=== PATIENT | female | born 1990 | race Caucasian/White ===

== ENCOUNTER 2016-09-11 11:55 | Emergency (ER) | payer BC ==
[2016-09-11] MEDS ORDERED: NS 0.9% 1000 ML* 1,000 ML IV ONE (16:02)
[2016-09-11 17:11] LABS: Urine Bilirubin Negative (Negative); Urine Glucose Negative (Negative); Urine Nitrite Negative (Negative)
[2016-09-11] MEDS ORDERED: Ondansetron INJ* 2 MG/ML VIAL IV ONE ×2 (17:35→19:48)
[2016-09-11] MEDS ORDERED: Metoclopramide IV* 5 MG/ML 2 ML VIAL IV ONE (18:36)
[2016-09-11] MEDS ORDERED: diPHENhydraMINE IV* 50 MG/ML 1 ml VIAL (BENADRYL) IV ONE (18:39)
[2016-09-11 19:02] LABS: Hematocrit 35 % (35-47); Hemoglobin 11.8 g/dl (12.0-16.0); Mean Corpuscular HGB Conc 34 g/dl (31-36); Mean Corpuscular Hemoglobin 30 pg (27-31); Mean Corpuscular Volume 89 fL (80-97); Mean Platelet Volume 8 um3 (7.4-10.4); Red Blood Count 3.92 10^6/ul (4.0-5.4); Red Cell Distribution Width 14 % (10.5-15); White Blood Count 13.9 10^3/ul (3.5-10.8)
[2016-09-11 19:18] LABS: Albumin 4.2 g/dL (3.2-5.2); BUN/Creatinine Ratio 17.9 (8-20); Calcium 9.4 mg/dL (8.6-10.3); EGFR African American 136.8 (>60); EGFR Non-African American 106.4 (>60); Globulin 2.9 g/dL (2-4); Magnesium 1.9 mg/dL (1.9-2.7); Potassium 3.5 mmol/L (3.5-5.0); Total Bilirubin 0.9 mg/dL (0.2-1.0); Total Protein 7.1 g/dL (6.4-8.9)
[2016-09-11 21:07] VITALS: BP 99/52
--- NOTE | 2016-09-13 00:22 | ED ---
Dereje Cortes Matthew, scribed for Soy Pham MD on 09/11/16 at 1732 . GI/ HPI - HPI Summary HPI Summary: A 14 week 25 y/o female presents to the ED with nausea and vomiting since two days ago. She has not been able to keep liquids or solids down. She has been throwing up every 30-45 minutes. Associated symptoms include dizziness - since this morning that's worse with movement and described as lightheadedness , headache - since this morning and rated 6/10 in severity, fatigue, and difficulty sleeping. The patient denies abdominal pain, hematemesis, fever, diaphoresis, weight change, diarrhea, and constipation. She had similar symptoms a months ago, and was prescribed anti nausea medication, which helped. At that time she was admitted for 2 days. Her last BM was yesterday and described as soft. Every women in her family has had constant nausea throughout their . 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 - History of Current Complaint Chief Complaint: EDNauseaVomitDiarrh Time Seen by Provider: 09/11/16 17:07 Stated Complaint: 14 WEEKS PREG , VOMITING Hx Obtained From: Patient Onset/Duration: Started Days Ago, Atraumatic, Still Present Timing: Constant Severity: Moderate Current Severity: Moderate Location of Pain: None Associated Signs and Symptoms: Positive: Dizziness, Lightheadedness, Other: - Difficulty sleeping; Fatigue; Headache. Negative: Constipation, Diarrhea, Diaphoresis, Fever, Change in Appetite, Abdominal Pain Aggravating Factor(s): Food Alleviating Factor(s): Nothing - Additional Pertinent History Primary Care Physician: [id number] - Allergy/Home Medications Allergies/Adverse Reactions: Allergies Allergy/AdvReac Type Severity Reaction Status Date / Time Amoxicillin Allergy Severe Hives Verified 10/31/14 13:44 Doxycycline Allergy Severe Hives Verified 10/31/14 13:44 Hydrocodone [From Vicodin] Allergy Severe Nausea And Verified 10/31/14 13:44 Vomiting Hydromorphone [From Dilaudid] Allergy Severe Hives Verified 10/31/14 13:44 Coconut Allergy Severe Anaphylatic Uncoded 10/31/14 13:44 Shock Nuts Allergy Severe Anaphylatic Uncoded 10/31/14 13:44 Shock PMH/Surg Hx/FS Hx/Imm Hx Endocrine/Hematology History: Denies: Hx Diabetes Cardiovascular History: Denies: Hx Congestive Heart Failure, Hx Hypertension Respiratory History: Reports: Hx Asthma GI History: Reports: Other GI Disorders - gall bladder removed- 2006 or 2007 History: Denies: Hx Renal Disease Musculoskeletal History: Reports: Other Musculoskeletal History - 2004: tendon lengthening surgery- bilateral l. extremity Neurological History: Reports: Hx Migraine - 2-3 times per week/ treats with excedrin or mtn dew Denies: Other Neuro Impairments/Disorders Psychiatric History: Reports: Hx Anxiety, Hx Depression, Hx Panic Disorder, Hx Community Mental Health Tx - Family and Children's Denies: Hx Eating Disorder, Hx of Violent Episodes Against Others - Surgical History Surgery Procedure, Year, and Place: 1999- tonsillectomy. 2003- tendon lenthening surgery, to bilateral lower extremities. 2006 or 2007- gallbladder removal - Immunization History Date of Tetanus Vaccine: Unknown Infectious Disease History: Yes Infectious Disease History: Denies: Traveled Outside the [place] in Last 30 Days - Family History Known Family History: Positive: Hypertension, Other - depression - mother Family History: FHx of [place] - Social History Alcohol Use: None Alcohol Amount: 1-2 drinks approximately twice a month Substance Use Type: Reports: None Smoking Status (MU): Never Smoked Tobacco Review of Systems Positive: Fatigue. Negative: Fever, Chills Eyes: Negative ENT: Negative Cardiovascular: Negative Respiratory: Negative Positive: Vomiting, Nausea. Negative: Abdominal Pain, Diarrhea Genitourinary: Negative Musculoskeletal: Negative Skin: Negative Neurological: Other - Dizziness; Lightheadedness Psychological: Normal All Other Systems Reviewed And Are Negative: Yes Physical Exam Triage Information Reviewed: Yes Vital Signs On Initial Exam: Initial Vitals Temp Pulse Resp BP Pulse Ox 98.5 F 79 18 108/67 100 09/11/16 12:31 09/11/16 12:31 09/11/16 12:31 09/11/16 12:09/11/16 12:31 Vital Signs Reviewed: Yes Appearance: Positive: Well-Appearing, No Pain Distress Skin: Positive: Warm, Dry, Pale Head/Face: Positive: Normal Head/Face Inspection Eyes: Positive: EOMI, AISHA ENT: Positive: Normal ENT inspection Neck: Positive: Supple, Nontender Respiratory/Lung Sounds: Positive: Clear to Auscultation, Breath Sounds Present Cardiovascular: Positive: RRR Abdomen Description: Positive: Nontender, Soft Bowel Sounds: Positive: Hypoactive Musculoskeletal: Positive: Normal, Strength/ROM Intact Neurological: Positive: Normal, Sensory/Motor Intact, Alert, Oriented to Person Place, Time Psychiatric: Positive: Normal, Affect/Mood Appropriate Diagnostics - Vital Signs Vital Signs Temp Pulse Resp BP Pulse Ox 09/11/16 15:45 98.6 F 82 101/58 100 09/11/16 14:30 98.7 F 80 20 110/63 100 09/11/16 13:37 98.5 F 73 17 107/60 99 09/11/16 12:31 98.5 F 79 18 108/67 100 - Laboratory Lab Results: Lab Results 09/11/16 Range/Units 12:43 Urine Color [place] Urine Appearance Turbid Urine pH 5.0 (5-9) Ur Specific [employer] [place] 1.019 (1.010-1.030) Urine Protein Negative (Negative) Urine Ketones Negative (Negative) Urine Blood Negative (Negative) Urine Nitrate Negative (Negative) Urine Bilirubin Negative (Negative) Urine Urobilinogen Negative (Negative) Ur Leukocyte Esterase Negative (Negative) Urine Glucose Negative (Negative) Urine Ascorbic Acid * H (Negative) Result Diagrams: 09/11/16 18:50 09/11/16 18:50 Lab Statement: Any lab studies that have been ordered have been reviewed, and results considered in the medical decision making process. GIGU Course/Dx - Course Assessment/Plan: A 14 week 25 y/o female presents to the ED with nausea and vomiting since two days ago. Labs were reviewed. In the ED course, the patient was given Reglan, iv fluids, Zofran, and Benadryl. After the medications, her nausea had improved. She will be discharged home and follow-up with [facility] - Diagnoses Provider Diagnoses: Vomiting, Dehydration Discharge - Discharge Plan Condition: Stable Disposition: HOME Patient Education Materials: Nausea and Vomiting in (ED) Referrals: [facility] [Provider Group] Additional Instructions: Please follow-up with your [facility]. The documentation as recorded by the Dereje burdick Matthew accurately reflects the service I personally performed and the decisions made by me, Soy Pham MD.
== END 2016-09-11 21:07 | disposition home or self-care (01) ==
LOC: ED 11:55
DX: O26.892 Other specified pregnancy related conditions, second trimester (principal); O21.9 Vomiting of pregnancy, unspecified; Z3A.14 14 weeks gestation of pregnancy; Z88.0 Allergy status to penicillin; Z88.5 Allergy status to narcotic agent; E86.0 Dehydration
CPT/HCPCS: 36415; 80053; 81003; 83735; 85025; 96360; 96374; 96375; 96376; 99283; J1200; J2405; J2765

== ENCOUNTER 2017-03-06 20:57 | Inpatient (IN) | payer BC ==
[2017-03-06] MEDS ORDERED: Albuterol HFA INHALER* 8 gm MDI INH PRN (21:28)
[2017-03-06] MEDS ORDERED: Ondansetron INJ* 2 MG/ML VIAL IV ONE (21:55)
[2017-03-06 22:04] LABS: Hematocrit 34 % (35-47); Hemoglobin 11.4 g/dl (12.0-16.0); Mean Corpuscular HGB Conc 33 g/dl (31-36); Mean Corpuscular Hemoglobin 29 pg (27-31); Mean Corpuscular Volume 88 fL (80-97); Mean Platelet Volume 10 um3 (7.4-10.4); Red Blood Count 3.88 10^6/ul (4.0-5.4); Red Cell Distribution Width 13 % (10.5-15); White Blood Count 20.5 10^3/ul (3.5-10.8)
[2017-03-06] MEDS ORDERED: Ondansetron INJ* 2 MG/ML VIAL ONE (22:10)
[2017-03-06 22:17] LABS: Albumin 3.2 g/dL (3.2-5.2); BUN/Creatinine Ratio 8.9 (8-20); Calcium 8.2 mg/dL (8.6-10.3); EGFR African American 112.3 (>60); EGFR Non-African American 87.3 (>60); Globulin 3.3 g/dL (2-4); Potassium 3.3 mmol/L (3.5-5.0); Total Bilirubin 0.8 mg/dL (0.2-1.0); Total Protein 6.5 g/dL (6.4-8.9); Uric Acid 5.6 mg/dL (2.3-6.6)
[2017-03-06] MEDS ORDERED: OBEPIDURAL* 250 ML ONE (23:28)
[2017-03-07] MEDS ORDERED: Famotidine TAB* 20 MG PO PRN (00:13)
[2017-03-07] MEDS ORDERED: Phenylephrine IV* 40 MCG/ML 10 ML SYRINGE IV PUSH PRN ×2 (00:13)
[2017-03-07] MEDS ORDERED: Sodium Citrate/Citric Acid* 15 ML UDC PO PRN (00:13)
[2017-03-07] MEDS ORDERED: OBEPIDURAL* 250 ML EPIDURAL SCH (01:00)
[2017-03-07] MEDS ORDERED: Oxytocin in LR* 20 UNITS/1,000 ML BAG IVPB ONE (06:44)
[2017-03-07] MEDS ORDERED: Oxytocin in LR* 20 UNITS/1,000 ML BAG IVPB SCH ×2 (07:00→17:00)
[2017-03-07] MEDS ORDERED: fentaNYL* 50 MCG/ML 2 ML VIAL (100 MCG VIAL) ONE (09:49)
[2017-03-07] MEDS ORDERED: Lidocaine 1% MPF wEPI 200,000* 30 ML SDV ONE (09:51)
[2017-03-07] MEDS ORDERED: Acetaminophen TAB* 325 MG ONE (14:56)
[2017-03-07] MEDS ORDERED: ceFOXitin 2 GM IVPREMIX* 2 GM/50 ML BAG ONE (14:56)
[2017-03-07] MEDS ORDERED: Acetaminophen SUPP* 325 MG SUPP PR ONE (14:58)
[2017-03-07] MEDS ORDERED: Acetaminophen TAB* 325 MG PO ONE (14:59)
[2017-03-07] MEDS ORDERED: ceFOXitin 2 GM IVPREMIX* 2 GM/50 ML BAG IVPB SCH (15:00)
[2017-03-07] MEDS ORDERED: Dibucaine 1% 28.35 GM TUBE PR PRN (16:55)
[2017-03-07] MEDS ORDERED: Witch Hazel PAD* JAR TOPICAL PRN (16:55)
[2017-03-07] MEDS ORDERED: Misoprostol TAB* 200 MCG PR ONE (16:55)
[2017-03-07] MEDS: Ibuprofen TAB* 600 MG PO PRN (17:30)
[2017-03-07] MEDS: Acetaminophen TAB* 325 MG PO PRN (20:22)
[2017-03-07] MEDS: Docusate CAP* 100 MG PO SCH (20:22)
[2017-03-08] MEDS: Ibuprofen TAB* 600 MG PO PRN ×4 (03:40→22:25)
[2017-03-08 07:04] LABS: Hematocrit 21 % (35-47); Hemoglobin 6.9 g/dl (12.0-16.0); Mean Corpuscular HGB Conc 33 g/dl (31-36); Mean Corpuscular Hemoglobin 29 pg (27-31); Mean Corpuscular Volume 89 fL (80-97); Mean Platelet Volume 10 um3 (7.4-10.4); Red Blood Count 2.38 10^6/ul (4.0-5.4); Red Cell Distribution Width 13 % (10.5-15); White Blood Count 21.8 10^3/ul (3.5-10.8)
[2017-03-08] MEDS: Acetaminophen TAB* 325 MG PO PRN ×3 (08:24→20:53)
[2017-03-08] MEDS: Docusate CAP* 100 MG PO SCH ×3 (08:25→20:53)
[2017-03-08] MEDS: Ferrous Gluconate TAB* 324 MG TAB PO SCH ×2 (20:53→20:54)
[2017-03-09] MEDS: Docusate CAP* 100 MG PO SCH ×3 (08:10→20:23)
[2017-03-09] MEDS: Acetaminophen TAB* 325 MG PO PRN (08:10)
[2017-03-09] MEDS: Ferrous Gluconate TAB* 324 MG TAB PO SCH ×2 (08:10→20:23)
[2017-03-09] MEDS: Ibuprofen TAB* 600 MG PO PRN ×3 (08:11→20:23)
[2017-03-09] MEDS: diPHENhydraMINE PO* 25 MG PO PRN (17:57)
[2017-03-09] MEDS: Hydrocortisone 1% CREAM* 30 GM TUBE TOPICAL SCH (17:58)
[2017-03-10] MEDS: Hydrocortisone 1% CREAM* 30 GM TUBE TOPICAL SCH (00:05)
[2017-03-10] MEDS: diPHENhydraMINE PO* 25 MG PO PRN (08:08)
[2017-03-10] MEDS: Ibuprofen TAB* 600 MG PO PRN (08:08)
[2017-03-10 08:27] VITALS: BP 133/82
[2017-03-10] MEDS: Docusate CAP* 100 MG PO SCH (08:56)
[2017-03-10] MEDS: Ferrous Gluconate TAB* 324 MG TAB PO SCH (08:56)
== END 2017-03-10 14:45 | disposition home or self-care (01) | DRG 560 ==
LOC: MCHOBOUT 20:57 → MCHOB 21:22
PROVIDERS: ADMIT Midwife; ATTEND Obstetrics & Gynecology
PROC: 10E0XZZ Delivery of Products of Conception, External Approach (ICD-10-PCS; principal; 2017-03-07)
PROC: 4A1HXCZ Monitoring of Products of Conception, Cardiac Rate, External Approach (ICD-10-PCS; 2017-03-07)
PROC: 0W8NXZZ Division of Female Perineum, External Approach (ICD-10-PCS; 2017-03-07)
DX: O69.81X0 Labor and delivery complicated by cord around neck, without compression, not applicable or unspecified (principal); O75.2 Pyrexia during labor, not elsewhere classified; Z3A.39 39 weeks gestation of pregnancy; Z37.0 Single live birth; Z88.5 Allergy status to narcotic agent; Z88.0 Allergy status to penicillin; Z88.1 Allergy status to other antibiotic agents; Z91.018 Allergy to other foods; O77.0 Labor and delivery complicated by meconium in amniotic fluid; O90.81 Anemia of the puerperium; Z91.410 Personal history of adult physical and sexual abuse; O76 Abnormality in fetal heart rate and rhythm complicating labor and delivery
CPT/HCPCS: 36415; 80053; 81002; 84550; 85025; 86850; 86900; 86901; 88307; A9270-GY; J0694; J2001; J2405; J3010

== ENCOUNTER 2017-04-28 11:28 | Emergency (ER) | payer BC ==
[2017-04-28 13:10] VITALS: BP 118/81
== END 2017-04-28 14:19 | disposition home or self-care (01) ==
LOC: UCCORT 11:28
DX: Z11.3 Encounter for screening for infections with a predominantly sexual mode of transmission (principal); A74.9 Chlamydial infection, unspecified
CPT/HCPCS: 99212; G0463

== ENCOUNTER 2017-09-16 13:56 | Emergency (ER) | payer BC ==
--- NOTE | 2017-09-16 15:33 | RAD ---
INDICATION: Head injury. COMPARISON: Comparison is made with prior CT of the brain from December 06, 2009. TECHNIQUE: Contiguous axial sections of the brain were obtained from the skull base to the vertex without contrast. FINDINGS: The ventricles, cisterns and sulci are within normal limits. No significant focal abnormality or mass effect is seen. There is no evidence for hemorrhage. No fracture is seen. There is a nodular density partially visualized in the right maxillary sinus measuring at least 2.0 cm in size most consistent with a mucous retention cyst or polyp. The visualized portion of the paranasal sinuses and mastoid air cells otherwise appear clear. IMPRESSION: NO EVIDENCE FOR ACUTE INTRACRANIAL ABNORMALITY.
[2017-09-16] MEDS ORDERED: Meclizine TAB* 12.5 MG PO ONE (15:41)
[2017-09-16] MEDS ORDERED: Dexamethasone IV* 4 MG/ML 1 ML (4 MG) IV SLOW PU ONE (15:41)
[2017-09-16] MEDS ORDERED: Ondansetron INJ* 2 MG/ML VIAL IV ONE (16:03)
--- NOTE | 2017-09-16 16:06 | ED ---
Head Injury - HPI Summary HPI Summary: 26-year-old female presents with head injury. 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 She denies any loss consciousness and that her vision went black for a couple seconds. She states that since then she has been extremely dizzy and nauseous. She states her dizziness is worse with head movements. States she feels unsteady on her feet. She states that her vision is fuzzy. She denies any double vision. She denies any photophobia or phonophobia. She admits to difficulty concentrating. She has difficulties in finding words. She has history of migraines. She is currently only taking Tylenol for her migraines due to breast-feeding. She was given a dose of zofran in route. - History Of Current Complaint Chief Complaint: EDHeadInjury Stated Complaint: HEAD INJURY Time Seen by Provider: 09/16/17 14:08 Hx Last Menstrual Period: May 2016 Pain Intensity: 4 - Allergies/Home Medications Allergies/Adverse Reactions: Allergies Allergy/AdvReac Type Severity Reaction Status Date / Time MS Amoxicillin [Amoxicillin] Allergy Severe Hives Verified 04/28/17 13:06 MS Doxycycline [Doxycycline] Allergy Severe Hives Verified 04/28/17 13:06 MS Hydrocodone [From Vicodin] Allergy Severe Nausea And Verified 04/28/17 13:06 Vomiting MS Hydromorphone Allergy Severe Hives Verified 04/28/17 13:06 [From Dilaudid] Coconut Allergy Severe Anaphylatic Uncoded 04/28/17 13:06 Shock Nuts Allergy Severe Anaphylatic Uncoded 04/28/17 13:06 Shock PMH/Surg Hx/FS Hx/Imm Hx Endocrine/Hematology History: Denies: Hx Diabetes Cardiovascular History: Denies: Hx Congestive Heart Failure, Hx Hypertension Respiratory History: Reports: Hx Asthma GI History: Reports: Other GI Disorders - gall bladder removed- 2006 or 2007 History: Denies: Hx Renal Disease Musculoskeletal History: Reports: Other Musculoskeletal History - 2004: tendon lengthening surgery- bilateral l. extremity Neurological History: Reports: Hx Migraine - 2-3 times per week/ treats with excedrin or mtn dew Denies: Other Neuro Impairments/Disorders Psychiatric History: Reports: Hx Anxiety, Hx Depression, Hx Panic Disorder, Hx Community Mental Health Tx - Family and Children's Denies: Hx Eating Disorder, Hx of Violent Episodes Against Others - Surgical History Surgery Procedure, Year, and Place: 1999- tonsillectomy. 2003- tendon lenthening surgery, to bilateral lower extremities. 2006 or 2007- gallbladder removal - Immunization History Date of Tetanus Vaccine: Unknown Infectious Disease History: No Infectious Disease History: Denies: Traveled Outside the [place] in Last 30 Days - Family History Known Family History: Positive: Hypertension, Other - depression - mother Family History: FHx of [place] - Social History Alcohol Use: Rare Alcohol Amount: 1-2 drinks approximately twice a month prior to Substance Use Type: Reports: None Smoking Status (MU): Never Smoked Tobacco Review of Systems Negative: Fever Negative: Chest Pain Negative: Shortness Of Breath Positive: Vomiting, Nausea Neurological: Other - dizziness Positive: Headache All Other Systems Reviewed And Are Negative: Yes Physical Exam Triage Information Reviewed: Yes Vital Signs On Initial Exam: Initial Vitals Temp Pulse Resp BP Pulse Ox 97.9 F 81 16 128/76 98 09/16/17 14:12 09/16/17 14:12 09/16/17 14:12 09/16/17 14:12 09/16/17 14:12 Vital Signs Reviewed: Yes Appearance: Positive: Well-Appearing Skin: Positive: Warm, Dry Head/Face: Positive: Normal Head/Face Inspection, Other - ecchymosis on right side of scalp Eyes: Positive: Normal, EOMI, AISHA, Conjunctiva Clear, Other: - rapidly blinking on exam ENT: Positive: Normal ENT inspection, Pharynx normal, TMs normal Neck: Positive: Other: - nontender neck Respiratory/Lung Sounds: Positive: Clear to Auscultation, Breath Sounds Present Cardiovascular: Positive: Normal, RRR Abdomen Description: Positive: Nontender, Soft Bowel Sounds: Positive: Present Musculoskeletal: Positive: Normal Neurological: Positive: Sensory/Motor Intact, Finger to Nose - slow - [place] Coma Scale Best Eye Response: 4 - Spontaneous Best Motor Response: 6 - Obeys Commands Best Verbal Response: 5 - Oriented Coma Scale Total: 15 Diagnostics - Vital Signs Vital Signs Temp Pulse Resp BP Pulse Ox 09/16/17 15:55 127/86 09/16/17 15:12 77 99 09/16/17 15:02 78 99 09/16/17 15:00 123/60 09/16/17 14:12 97.9 F 81 16 128/76 98 - Laboratory Lab Statement: Any lab studies that have been ordered have been reviewed, and results considered in the medical decision making process. - CT brain CT Interpretation: No Acute Changes CT Interpretation Completed By: Radiologist Re-Evaluation - Re-Evaluation First Eval Re-Evaluation Time: 16:00 Change: Unchanged Comment: will try benadryl and compazine Second Eval Re-Evaluation Time: 18:11 Change: Improved Comment: feeling better after migraine cocktail Head Injury Course/Dx Course Of Treatment: 26-year-old female presents with head injury. 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 She denies any loss consciousness and that her vision went black for a couple seconds. She states that since then she has been extremely dizzy and nauseous. She states her dizziness is worse with head movements. States she feels unsteady on her feet. She states that her vision is fuzzy. She denies any double vision. She denies any photophobia or phonophobia. She admits to difficulty concentrating. She has difficulties in finding words. She has history of migraines. She is currently only taking Tylenol for her migraines due to breast-feeding. She was given a dose of zofran in route. normal neuro exam just very slow. blinking a lot. CT brain neg. patient then vomitied again. spoke with dr jarrett and reccomends benadryl and compazine. gave migraine cocktail and feeling better. will discharge to follow up with neuro. patient understand and agrees with plan. - Diagnoses Differential Diagnosis/HQI/PQRI: Concussion With LOC, Concussion Without LOC, Contusion, Intracranial Bleed Provider Diagnoses: Concussion Discharge - Discharge Plan Condition: Good Disposition: HOME Prescriptions: Meclizine TAB* [Antivert 12.5 TAB*] 12.5 mg PO TID #12 tab Ondansetron ODT TAB* [Zofran 4 MG Odt TAB*] 4 mg PO Q6H PRN #20 tab.odt PRN Reason: Nausea predniSONE TAB* [Deltasone TAB*] 20 mg PO DAILY #4 tab Patient Education Materials: Concussion (ED) Forms: *Work Release Referrals: Ryley Jarrett MD [Medical Doctor] - Nelson Gonzalez DO [Primary Care Provider] - Additional Instructions: Take meclizine 3 times a day for dizziness take Zofran every 6 hours as needed for nausea Takes prednisone once daily for next [address] ice on area as needed Take Tylenol or ibuprofen for headache every 6 hours Modify activities as tolerated Follow up with neurology Return to ED if develop any new or worsening symptoms
[2017-09-16] MEDS ORDERED: diPHENhydraMINE IV* 50 MG/ML 1 ml VIAL (BENADRYL) IV ONE (16:35)
[2017-09-16] MEDS ORDERED: PROCHLORPERAZINE INJ 5 MG/ML 2 ML VIAL IV ONE (17:04)
[2017-09-16 18:15] VITALS: BP 98/48
== END 2017-09-16 18:13 | disposition home or self-care (01) ==
LOC: ED 13:56
DX: S06.0X0A Concussion without loss of consciousness, initial encounter (principal); W22.09XA Striking against other stationary object, initial encounter; Y93.89 Activity, other specified; Y92.9 Unspecified place or not applicable; J45.909 Unspecified asthma, uncomplicated; G43.909 Migraine, unspecified, not intractable, without status migrainosus; F41.0 Panic disorder [episodic paroxysmal anxiety]; F32.9 Major depressive disorder, single episode, unspecified; Z90.49 Acquired absence of other specified parts of digestive tract; Z88.1 Allergy status to other antibiotic agents; Z88.5 Allergy status to narcotic agent
CPT/HCPCS: 70450; 96374; 96375; 99282; A9270-GY; J0780; J1100; J1200; J2405

== ENCOUNTER 2017-09-18 15:53 | Emergency (ER) | payer BC, OTHER ==
[2017-09-18 17:19] VITALS: BP 123/65
--- NOTE | 2017-09-18 17:31 | UC ---
Head Injury HPI - HPI Summary HPI Summary: hit head 2 days ago at work---has continued symptoms of concussion, difficulty concentration, body feeling out of step with mind, no nausea - History Of Current Complaint Chief Complaint: UCHeadInjury Stated Complaint: NEEDS RETURN TO WORK NOTE Time Seen by Provider: 09/18/17 17:16 Hx Obtained From: Patient Hx Last Menstrual Period: May 2016 ?: No Mechanism Of Injury: hit head on a counter at work Onset/Duration: Sudden Onset Severity Currently: Moderate Severity Initially: Mild Pain Intensity: 3 Pain Scale Used: 0-10 Numeric Character: Throbbing Aggravating Factor(s): Other - stimuli of television Alleviating Factor(s): Nothing Associated Signs And Symptoms: Positive: Negative - Allergies/Home Medications Allergies/Adverse Reactions: Allergies Allergy/AdvReac Type Severity Reaction Status Date / Time MS Amoxicillin [Amoxicillin] Allergy Severe Hives Verified 09/18/17 17:20 MS Doxycycline [Doxycycline] Allergy Severe Hives Verified 09/18/17 17:20 MS Hydrocodone [From Vicodin] Allergy Severe Nausea And Verified 09/18/17 17:20 Vomiting MS Hydromorphone Allergy Severe Hives Verified 09/18/17 17:20 [From Dilaudid] Coconut Allergy Severe Anaphylatic Uncoded 09/18/17 17:20 Shock Nuts Allergy Severe Anaphylatic Uncoded 09/18/17 17:20 Shock Home Medications: Home Medications predniSONE TAB* [Deltasone TAB*] 10 mg PO DAILY 09/18/17 [History Confirmed 02/26] PMH/Surg Hx/FS Hx/Imm Hx Previously Healthy: No Neurological History: Migraine Psychological History: Depression - Surgical History Surgical History: Yes Surgery Procedure, Year, and Place: 1999- tonsillectomy. 2003- tendon lenthening surgery, to bilateral lower extremities. 2006 or 2007- gallbladder removal - Family History Known Family History: Positive: Hypertension, Other - depression - mother Family History: FHx of [place] - Social History Occupation: Employed Full-time Lives: With Family Alcohol Use: Rare Alcohol Amount: 1-2 drinks approximately twice a month prior to Substance Use Type: None Smoking Status (MU): Never Smoked Tobacco - Immunization History Most Recent Influenza Vaccination: April 2017 Most Recent Tetanus Shot: UTD Most Recent Pneumonia Vaccination: has not received Review of Systems Constitutional: Negative Skin: Negative Eyes: Negative ENT: Negative Respiratory: Negative Cardiovascular: Negative Gastrointestinal: Negative Genitourinary: Negative Motor: Negative Neurovascular: Negative Musculoskeletal: Negative Neurological: Headache Psychological: Negative Is Patient Immunocompromised?: No All Other Systems Reviewed And Are Negative: Yes Physical Exam Triage Information Reviewed: Yes Appearance: Well-Nourished, Ill-Appearing, Pain Distress Vital Signs: Initial Vital Signs Temp 99.1 F 09/18/17 17:10 Pulse 74 09/18/17 17:10 Resp 16 09/18/17 17:10 BP 123/65 09/18/17 17:10 Pulse Ox 99 09/18/17 17:10 Vital Signs Reviewed: Yes Eye Exam: Normal Eyes: Positive: Conjunctiva Clear, Other: - perrla, eomi ENT Exam: Normal ENT: Positive: Normal ENT inspection, Hearing grossly normal, Pharynx normal, TMs normal, Uvula midline. Negative: Nasal congestion, Nasal drainage, Tonsillar swelling, Tonsillar exudate, Trismus, Muffled voice, Hoarse voice, Dental tenderness, Sinus tenderness Dental Exam: Normal Neck exam: Normal Neck: Positive: Supple, Nontender Respiratory Exam: Normal Respiratory: Positive: Chest non-tender, Lungs clear, Normal breath sounds, No respiratory distress, No accessory muscle use Cardiovascular Exam: Normal Cardiovascular: Positive: RRR, No Murmur, Pulses Normal, Brisk Capillary Refill Musculoskeletal Exam: Normal Musculoskeletal: Positive: Strength Intact, ROM Intact, No Edema Neurological Exam: Normal Neurological: Positive: Alert, Muscle Tone Normal Psychological Exam: Normal Skin Exam: Normal Head Injury Course/Dx - Course Course Of Treatment: rest in a low stimulation enviroment, call Dr. Garcia for a sooner appointment, - Differential Dx/Diagnosis Provider Diagnoses: Post concussive syndrome Discharge - Discharge Plan Condition: Stable Disposition: HOME Patient Education Materials: Concussion (ED), Post Concussion Syndrome (ED) Forms: *Work Release Referrals: Ryley Esquivel MD [Medical Doctor] - As Soon As Possible Additional Instructions: Take first available appointment with Dr. Esquivel---return as needed
== END 2017-09-18 17:46 | disposition home or self-care (01) ==
LOC: UCCORT 15:53
DX: F07.81 Postconcussional syndrome (principal); G43.909 Migraine, unspecified, not intractable, without status migrainosus; F32.9 Major depressive disorder, single episode, unspecified; Z88.1 Allergy status to other antibiotic agents; Z88.5 Allergy status to narcotic agent; Z91.018 Allergy to other foods; Z90.49 Acquired absence of other specified parts of digestive tract
CPT/HCPCS: 99211; G0463

== ENCOUNTER 2017-09-22 17:29 | Emergency (ER) | payer OTHER ==
[2017-09-22 19:51] VITALS: BP 120/74
--- NOTE | 2017-09-22 20:03 | UC ---
Head Injury HPI - HPI Summary HPI Summary: Hit head on cabinet at school on 09/16/17. No LOC. Persistent headaches. Still some problems focusing. - History Of Current Complaint Chief Complaint: UCHeadInjury Stated Complaint: F/U CONCUSSION FOR WORK CLEARANCE Time Seen by Provider: 09/22/17 19:56 Hx Obtained From: Patient Hx Last Menstrual Period: May 2016 ?: No Onset/Duration: Sudden Onset, Still Present Severity Currently: None Severity Initially: Severe Pain Intensity: 4 Aggravating Factor(s): Other - screen exposure Associated Signs And Symptoms: Negative: LOC (Time In Secs./Mins/Hrs), LOC Duration Unknown, Confusion, Memory Loss - Risk Factors SDH Risk Factor: Recent Trauma - Allergies/Home Medications Allergies/Adverse Reactions: Allergies Allergy/AdvReac Type Severity Reaction Status Date / Time MS Amoxicillin [Amoxicillin] Allergy Severe Hives Verified 09/22/17 19:51 MS Doxycycline [Doxycycline] Allergy Severe Hives Verified 09/22/17 19:51 MS Hydrocodone [From Vicodin] Allergy Severe Nausea And Verified 09/22/17 19:51 Vomiting MS Hydromorphone Allergy Severe Hives Verified 09/22/17 19:51 [From Dilaudid] Coconut Allergy Severe Anaphylatic Uncoded 09/22/17 19:51 Shock Nuts Allergy Severe Anaphylatic Uncoded 09/22/17 19:51 Shock PMH/Surg Hx/FS Hx/Imm Hx Previously Healthy: Yes - Surgical History Surgical History: Yes Surgery Procedure, Year, and Place: 1999- tonsillectomy. 2003- tendon lenthening surgery, to bilateral lower extremities. 2006 or 2007- gallbladder removal - Family History Known Family History: Positive: Other - depression - mother Negative: Cardiac Disease, Hypertension, Diabetes Family History: FHx of [place] - Social History Occupation: Employed Full-time Lives: With Family Alcohol Use: Rare Alcohol Amount: 1-2 drinks approximately twice a month prior to Substance Use Type: None Smoking Status (MU): Never Smoked Tobacco Have You Smoked in the Last Year: No - Immunization History Most Recent Influenza Vaccination: April 2017 Most Recent Tetanus Shot: UTD Most Recent Pneumonia Vaccination: has not received Review of Systems Neurological: Headache Is Patient Immunocompromised?: No All Other Systems Reviewed And Are Negative: Yes Physical Exam Triage Information Reviewed: Yes Appearance: Well-Appearing, No Pain Distress, Well-Nourished Vital Signs: Initial Vital Signs Temp 98.5 F 09/22/17 19:48 Pulse 68 09/22/17 19:48 Resp 16 09/22/17 19:48 BP 120/74 09/22/17 19:48 Pulse Ox 100 09/22/17 19:48 Vital Signs Reviewed: Yes Eyes: Positive: Conjunctiva Clear Neck exam: Normal Neck: Positive: Nontender Respiratory Exam: Normal Cardiovascular Exam: Normal Musculoskeletal Exam: Normal Neurological Exam: Normal Psychological Exam: Normal Skin Exam: Normal Head Injury Course/Dx - Differential Dx/Diagnosis Differential Diagnosis/HQI/PQRI: Cervical Sprain, Concussion With LOC, Concussion Without LOC, Contusion Provider Diagnoses: Post concussion syndrome Discharge - Discharge Plan Condition: Stable Disposition: HOME Patient Education Materials: Post Concussion Syndrome (ED) Referrals: Nelson Gonzalez DO [Primary Care Provider] -
== END 2017-09-22 20:13 | disposition home or self-care (01) ==
LOC: UCCORT 17:29
DX: F07.81 Postconcussional syndrome (principal); G44.309 Post-traumatic headache, unspecified, not intractable; W22.09XA Striking against other stationary object, initial encounter; Y93.9 Activity, unspecified; Y92.219 Unspecified school as the place of occurrence of the external cause
CPT/HCPCS: 99211; G0463

== ENCOUNTER 2018-01-20 08:18 | Emergency (ER) | payer BC ==
[2018-01-20 08:54] VITALS: BP 106/58
--- NOTE | 2018-01-20 09:15 | UC ---
FLU HPI - HPI Summary HPI Summary: pt c/o fever, chills, body aches, X 2 days. denies sore throat, cough, nausea and vomiting. - History of Current Complaint Chief Complaint: UCGeneralIllness Stated Complaint: FEVER *2DAYS Time Seen by Provider: 01/20/18 08:52 Hx Obtained From: Patient Hx Last Menstrual Period: 01/16/18 ?: No Onset/Duration: Sudden Onset, Lasting Days, Still Present Severity Currently: Mild Severity Initially: Moderate Pain Intensity: 6 Associated Signs & Symptoms: Positive: Fever, Myalgia - Risk Factors Influenza Risk Factors: Negative - Allergy/Home Medications Allergies/Adverse Reactions: Allergies Allergy/AdvReac Type Severity Reaction Status Date / Time amoxicillin Allergy Hives Verified 01/20/18 09:34 doxycycline Allergy Hives Verified 01/20/18 09:34 hydrocodone Allergy Nausea And Verified 01/20/18 09:34 Vomiting hydromorphone Allergy Hives Verified 01/20/18 09:34 Coconut Allergy Severe Anaphylatic Uncoded 01/20/18 08:50 Shock Nuts Allergy Severe Anaphylatic Uncoded 01/20/18 08:50 Shock Home Medications: Home Medications Ibuprofen TAB* [Advil TAB*] 400 mg PO Q6H PRN 01/20/18 [History Confirmed ] PMH/Surg Hx/FS Hx/Imm Hx Previously Healthy: Yes - Surgical History Surgical History: Yes Surgery Procedure, Year, and Place: 1999- tonsillectomy. 2003- tendon lenthening surgery, to bilateral lower extremities. 2006 or 2007- gallbladder removal - Family History Known Family History: Positive: Other - depression - mother Negative: Cardiac Disease, Hypertension, Diabetes Family History: FHx of [place] - Social History Occupation: Employed Full-time Lives: With Family Alcohol Use: Occasionally Alcohol Amount: 1-2 drinks approximately twice a month prior to Substance Use Type: None Smoking Status (MU): Never Smoked Tobacco Have You Smoked in the Last Year: No - Immunization History Most Recent Influenza Vaccination: April 2017 Most Recent Tetanus Shot: UTD Most Recent Pneumonia Vaccination: has not received Review of Systems Constitutional: Fever, Chills, Fatigue Skin: Negative Eyes: Negative ENT: Negative Respiratory: Negative Cardiovascular: Negative Gastrointestinal: Negative Genitourinary: Negative Motor: Negative Neurovascular: Negative Musculoskeletal: Myalgia Neurological: Negative Psychological: Negative Is Patient Immunocompromised?: No All Other Systems Reviewed And Are Negative: Yes Physical Exam Triage Information Reviewed: Yes Appearance: Ill-Appearing Vital Signs: Initial Vital Signs Temp 99.7 F 01/20/18 08:47 Pulse 125 01/20/18 08:47 Resp 15 01/20/18 08:47 BP 106/58 01/20/18 08:47 Pulse Ox 98 01/20/18 08:47 Vital Signs Reviewed: Yes Eye Exam: Normal ENT Exam: Normal Dental Exam: Normal Neck exam: Normal Respiratory Exam: Normal Cardiovascular Exam: Normal Musculoskeletal Exam: Normal Neurological Exam: Normal Psychological Exam: Normal Skin Exam: Normal Diagnostics - Laboratory Diagnostic Studies Completed/Ordered: Rapid influenza negative. UA: postive for UTI Flu Course/Dx - Differential Dx/Diagnosis Differential Diagnosis/HQI/PQRI: Influenza, Other - viral syndrome Provider Diagnoses: UTI. fever Discharge - Sign-Out/Discharge Documenting (check all that apply): Discharge/Admit/Transfer - Discharge Plan Condition: Stable Disposition: HOME Prescriptions: Phenazopyridine TAB* [Pyridium 100 mg TAB*] 100 mg PO Q8H #6 tab Sulfamethox/Trimethoprim DS* [Bactrim DS 800/160 TAB*] 1 tab PO Q12H #14 tab Patient Education Materials: Urinary Tract Infection in Women (ED), Fever in Adults (ED) Referrals: Nelson Gonzalez DO [Primary Care Provider] - If Needed - Billing Disposition and Condition Condition: STABLE Disposition: Home
[2018-01-20] MEDS ORDERED: Sulfamethox/Trimethoprim DS 800/160* TAB PO ONE (09:29)
== END 2018-01-20 09:44 | disposition home or self-care (01) ==
LOC: UCCORT 08:18
DX: N39.0 Urinary tract infection, site not specified (principal); R50.9 Fever, unspecified; Z88.0 Allergy status to penicillin; Z88.1 Allergy status to other antibiotic agents; Z88.5 Allergy status to narcotic agent; Z91.018 Allergy to other foods
CPT/HCPCS: 81003; 87077; 87086; 87186; 87502; 99212; A9270-GY; G0463

== ENCOUNTER 2018-10-08 08:25 | Emergency (ER) | payer SELFPAY ==
[2018-10-08 08:51] VITALS: BP 104/89
[2018-10-08 09:16] LABS: Influenza A Molecular POSITIVE (Negative)
[2018-10-08] MEDS ORDERED: Acetaminophen TAB* 325 MG PO ONE (10:01)
--- NOTE | 2018-10-08 10:07 | UC ---
FLU HPI - HPI Summary HPI Summary: Pt presents with c/o sudden onset of cough, fever, chills, body aches X 2 days. - History of Current Complaint Chief Complaint: UCGeneralIllness Stated Complaint: FLU SX'S Time Seen by Provider: 10/08/18 10:01 Hx Obtained From: Patient Hx Last Menstrual Period: 09/25/18 ?: No Onset/Duration: Sudden Onset, Lasting Days, Still Present Severity Currently: Moderate Severity Initially: Moderate Pain Intensity: 4 Associated Signs & Symptoms: Positive: Fever, Myalgia, Cough Related Hx: Possible Flu/Infectious Exposure - Risk Factors Influenza Risk Factors: Negative - Allergy/Home Medications Allergies/Adverse Reactions: Allergies Allergy/AdvReac Type Severity Reaction Status Date / Time amoxicillin Allergy Hives Verified 10/08/18 08:46 doxycycline Allergy Hives Verified 10/08/18 08:46 hydrocodone Allergy Nausea And Verified 10/08/18 08:46 Vomiting hydromorphone Allergy Hives Verified 10/08/18 08:46 C[place]ut Allergy Severe Anaphylatic Uncoded 10/08/18 08:46 Shock Nuts Allergy Severe Anaphylatic Uncoded 10/08/18 08:46 Shock Home Medications: Home Medications guaiFENesin LIQ* [Robitussin*] 5 mg PO Q4H PRN 10/08/18 [History Confirmed 10/08] PMH/Surg Hx/FS Hx/Imm Hx Previously Healthy: Yes - Surgical History Surgical History: Yes Surgery Procedure, Year, and Place: 1999- tonsillectomy. 2003- tendon lenthening surgery, to bilateral lower extremities. 2006 or 2007- gallbladder removal - Family History Known Family History: Positive: Other - depression - mother Negative: Cardiac Disease, Hypertension, Diabetes Family History: FHx of [place] - Social History Alcohol Use: Occasionally Alcohol Amount: 1-2 drinks approximately twice a month prior to Substance Use Type: None Smoking Status (MU): Never Smoked Tobacco Have You Smoked in the Last Year: No - Immunization History Most Recent Influenza Vaccination: April 2017 Most Recent Tetanus Shot: UTD Most Recent Pneumonia Vaccination: has not received Vaccination Up to Date: Yes Review of Systems All Other Systems Reviewed And Are Negative: Yes Constitutional: Positive: Fever, Chills, Fatigue Skin: Positive: Negative Eyes: Positive: Negative ENT: Positive: Sinus Congestion Respiratory: Positive: Cough Cardiovascular: Positive: Negative Gastrointestinal: Positive: Negative Genitourinary: Positive: Negative Motor: Positive: Negative Neurovascular: Positive: Negative Musculoskeletal: Positive: Myalgia Neurological: Positive: Headache Psychological: Positive: Negative Is Patient Immunocompromised?: No Physical Exam Triage Information Reviewed: Yes Appearance: Ill-Appearing Vital Signs: Initial Vital Signs Temp 101.3 F 10/08/18 08:46 Pulse 136 10/08/18 08:46 Resp 20 10/08/18 08:46 BP 104/89 10/08/18 08:46 Pulse Ox 100 10/08/18 08:46 Vital Signs Reviewed: Yes Eye Exam: Normal ENT: Positive: Nasal congestion Dental Exam: Normal Neck exam: Normal Respiratory Exam: Normal Respiratory: Positive: Normal breath sounds Cardiovascular Exam: Normal Musculoskeletal Exam: Normal Neurological Exam: Normal Psychological Exam: Normal Skin Exam: Normal Flu Course/Dx - Differential Dx/Diagnosis Differential Diagnosis/HQI/PQRI: Bronchitis, Influenza Provider Diagnosis: Influenza A Discharge - Sign-Out/Discharge Documenting (check all that apply): Patient Departure All imaging exams completed and their final reports reviewed: No Studies - Discharge Plan Condition: Stable Disposition: HOME Prescriptions: Albuterol HFA INHALER* [Ventolin HFA Inhaler*] 2 puff INH Q4H PRN #1 mdi PRN Reason: Sob/Wheezing Benzonatate CAP* [Tessalon 100 MG CAP*] 200 mg PO Q8H PRN #30 cap PRN Reason: Cough Oseltamivir CAP* [Tamiflu CAP*] 75 mg PO Q12H #10 cap predniSONE TAB* [Deltasone 20 MG TAB*] 20 mg PO DAILY #4 tab Patient Education Materials: Influenza (ED) Forms: *Work Release Referrals: Nelson Gonzalez DO [Primary Care Provider] - If Needed - Billing Disposition and Condition Condition: STABLE Disposition: Home
== END 2018-10-08 10:17 | disposition home or self-care (01) ==
LOC: UCCORT 08:25
DX: J10.1 Influenza due to other identified influenza virus with other respiratory manifestations (principal); Z88.0 Allergy status to penicillin; Z88.1 Allergy status to other antibiotic agents; Z88.5 Allergy status to narcotic agent; Z91.018 Allergy to other foods
CPT/HCPCS: 99212; A9270-GY; G0463

== ENCOUNTER 2020-01-11 19:46 | Inpatient (IN) ==
[2020-01-11] MEDS ORDERED: Morphine 10 MG/ML VIAL (1 ml) IM ONE (23:12)
[2020-01-11] MEDS ORDERED: Morphine 10 MG/ML VIAL (1 ml) IV ONE (23:15)
[2020-01-11] MEDS ORDERED: diPHENhydraMINE IV 50 MG/ML 1 ml VIAL (BENADRYL) IV PRN (23:16)
[2020-01-11 23:40] LABS: ABS Basophils 0.1 10^3/ul (0-0.2); ABS Eosinophils 0.1 10^3/ul (0-0.6); ABS Lymphocytes 1.8 10^3/ul (1.0-4.8); ABS Monocytes 0.6 10^3/ul (0-0.8); ABS Neutrophils 10.3 10^3/ul (1.5-7.7); Eosinophil % 0.6 %; Hematocrit 29 % (35-47); Hemoglobin 9.8 g/dL (12.0-16.0); Lymphocyte % 14.1 %; Mean Corpuscular HGB Conc 34 g/dL (31-36); Mean Corpuscular Hemoglobin 28 pg (27-31); Mean Corpuscular Volume 84 fL (80-97); Mean Platelet Volume 9.3 fL (7.4-10.4); Platelet Count 273 10^3/uL (150-450); Red Blood Count 3.47 10^6 /uL (3.70-4.87); Red Cell Distribution Width 13 % (10-15); White Blood Count 12.9 10^3/uL (3.5-10.8)
[2020-01-11] MEDS ORDERED: Lactated Ringers 1000 ml BAG 1,000 ML IV SCH (23:45)
[2020-01-12] MEDS ORDERED: Promethazine INJ(RESTRICTED) 25 MG/ML 1 ml VIAL ONE (00:05)
[2020-01-12 00:08] LABS: Urine Benzodiazepine Screen Presumptive Positive (None Detect); Urine Cannabinoids Screen None Detected (None Detect); Urine Opiates Screen None Detected (None Detect)
[2020-01-12] MEDS ORDERED: Promethazine INJ(RESTRICTED) 25 MG/ML 1 ml VIAL IV ONE (00:15)
[2020-01-12] MEDS ORDERED: OBEPIDURAL 250 ML EPIDURAL ONE (08:59)
[2020-01-12] MEDS ORDERED: Lactated Ringers 1000 ml BAG 1,000 ML IV ONE ×2 (09:02→09:52)
[2020-01-12] MEDS ORDERED: Sodium Citrate/Citric Acid LIQ 15 ML UDC PO PRN (09:52)
[2020-01-12] MEDS ORDERED: Phenylephrine 40 mcg/mL 10mL (400mcg) SYRINGE IV PUSH PRN ×2 (09:52)
[2020-01-12] MEDS ORDERED: OBEPIDURAL 250 ML EPIDURAL SCH (10:00)
[2020-01-12] MEDS ORDERED: Lactated Ringers 1000 ml BAG 1,000 ML IV SCH ×3 (10:00→17:00)
[2020-01-12 10:42] LABS: Urine Benzodiazepine Screen Presumptive Positive (None Detect); Urine Cannabinoids Screen None Detected (None Detect); Urine Opiates Screen None Detected (None Detect)
[2020-01-12] MEDS ORDERED: Oxytocin in LR 20 UNITS/1,000 ML BAG IVPB ONE (15:14)
[2020-01-12] MEDS ORDERED: Glycerin ADULT 2.4 gm SUPP PR PRN (16:18)
[2020-01-12] MEDS ORDERED: Gentamicin ADULT 40 MG/ML VIAL (2 ML VIAL = 80 MG) IVPB ONE (16:25)
[2020-01-12] MEDS ORDERED: Clindamycin 900 MG/D5W BAG 900 MG/50 ML BAG IVPB ONE (16:28)
[2020-01-12] MEDS: NS 0.9% 1000 ml BAG 1,000 ML IV SCH (16:50)
[2020-01-12 16:56] LABS: Urine Appearance Cloudy; Urine Bilirubin Negative (Negative); Urine Blood 2+ (Negative); Urine Color Amber; Urine Glucose Negative (Negative); Urine Ketones Trace (Negative); Urine Nitrite Negative (Negative); Urine Protein 2+(100 mg/dL) (Negative); Urine Specific Gravity 1.021 (1.010-1.030); Urine Urobilinogen Negative (Negative)
[2020-01-12] MEDS ORDERED: Gentamicin ADULT 80 MG in NS 0.9% 100 ml BAG 100 ML IVPB ONE (17:00)
[2020-01-12 17:07] LABS: Urine Bacteria Absent (Absent); Urine Red Blood Cell 3+(>10/hpf) (Absent); Urine Squamous Epithelial Cell Present (Absent); Urine White Blood Cell 2+(11-20/hpf) (Absent)
[2020-01-12 17:12] LABS: Hematocrit 27 % (35-47); Hemoglobin 8.9 g/dL (12.0-16.0); Mean Corpuscular HGB Conc 34 g/dL (31-36); Mean Corpuscular Hemoglobin 28 pg (27-31); Mean Corpuscular Volume 83 fL (80-97); Mean Platelet Volume 9.4 fL (7.4-10.4); Platelet Count 226 10^3/uL (150-450); Red Cell Distribution Width 13 % (10-15); White Blood Count 20.5 10^3/uL (3.5-10.8)
[2020-01-12 17:46] LABS: Albumin 2.9 g/dL (3.2-5.2); Albumin/Globulin Ratio 1.1 (1-3); BUN/Creatinine Ratio 15.7 (8-20); Calcium 7.8 mg/dL (8.6-10.3); EGFR African American 97.7 (>60); EGFR Non-African American 80.7 (>60); Globulin 2.6 g/dL (2-4); Potassium 3.8 mmol/L (3.5-5.0); Total Bilirubin 0.7 mg/dL (0.2-1.0); Total Protein 5.5 g/dL (6.4-8.9)
[2020-01-12] MEDS ORDERED: Gentamicin ADULT 300 MG in NS 0.9% 100 ml BAG 100 ML IVPB SCH (18:30)
[2020-01-12] MEDS: Clindamycin 900 MG/D5W BAG 900 MG/50 ML BAG IVPB SCH (18:37)
[2020-01-12] MEDS: Dibucaine 1% OINT 28.35 GM TUBE PR PRN (18:37)
[2020-01-12] MEDS: Witch Hazel PAD JAR TOPICAL PRN (18:38)
[2020-01-13] MEDS: NS 0.9% 1000 ml BAG 1,000 ML IV SCH (01:00)
[2020-01-13] MEDS: Clindamycin 900 MG/D5W BAG 900 MG/50 ML BAG IVPB SCH ×2 (04:21→11:24)
[2020-01-13 07:21] LABS: ABS Eosinophils 0.1 10^3/ul (0-0.6); ABS Monocytes 0.9 10^3/ul (0-0.8); ABS Neutrophils 11.9 10^3/ul (1.5-7.7); Eosinophil % 0.4 %; Hematocrit 25 % (35-47); Hemoglobin 8.7 g/dL (12.0-16.0); Lymphocyte % 13.6 %; Mean Corpuscular HGB Conc 35 g/dL (31-36); Mean Corpuscular Hemoglobin 30 pg (27-31); Mean Corpuscular Volume 84 fL (80-97); Platelet Count 212 10^3/uL (150-450); Red Blood Count 2.91 10^6 /uL (3.70-4.87); Red Cell Distribution Width 13 % (10-15); White Blood Count 14.9 10^3/uL (3.5-10.8)
[2020-01-13 07:58] LABS: Albumin 2.4 g/dL (3.2-5.2); BUN/Creatinine Ratio 12.9 (8-20); Calcium 7.6 mg/dL (8.6-10.3); EGFR African American 118.9 (>60); EGFR Non-African American 98.3 (>60); Globulin 2.3 g/dL (2-4); Potassium 3.8 mmol/L (3.5-5.0); Total Bilirubin 0.6 mg/dL (0.2-1.0); Total Protein 4.7 g/dL (6.4-8.9)
[2020-01-13] MEDS ORDERED: Lidocaine 1% MPF 5 ML VIAL ONE (19:00)
[2020-01-13] MEDS ORDERED: EPHEDrine (Pressors) 50 MG/ML VIAL ONE (19:00)
[2020-01-14 08:50] VITALS: BP 119/75
[2020-01-14] MEDS: Witch Hazel PAD JAR TOPICAL PRN (18:01)
[2020-01-14] MEDS: Dibucaine 1% OINT 28.35 GM TUBE PR PRN (18:01)
== END 2020-01-14 16:10 | disposition home or self-care (01) | DRG 560 ==
LOC: MCHOBOUT 19:46 → MCHOB 01-12 08:52
PROVIDERS: ADMIT Obstetrics & Gynecology; ATTEND Obstetrics & Gynecology